=== PATIENT | female | born 1985 | race African-American/Black ===

== ENCOUNTER 2016-06-06 18:03 | Emergency (ER) | payer OTHER ==
[~2016-06-06] VITALS: Ht 170.2 cm; Wt 113.4 kg
--- NOTE | ~2016-06-06 | EKG ---
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
[~2016-06-06 18:03] MED LIST: FOLIC ACID; IRON; LOESTRIN 24 FE1 EACH; NORCO 5-325 TA1 EACH PO; VALIUM5 MG PO; VITAMIN B-12100 MCG
[2016-06-06] MEDS ORDERED: SINGULAIR 10 MG10 M1 PO (18:41)
[2016-06-06 19:56] LABS: BASOPHILS 0.8 % (0.0-2.0); EOSINOPHILS 0.6 % (0.0-3.0); HEMOGLOBIN 11.6 gm/dL (12.0-15.0)
[2016-06-06 19:58] LABS: HEMATOCRIT 36.3 % (37.0-47.0); MCH 23.3 pg (26.0-34.0); MCHC 31.9 % (28.0-37.0); MCV 73.1 fL (80.0-100.0); PLATELET COUNT 458 thou/uL (150-400); POLYS 60.6 % (36.0-66.0); RBC 4.97 mil/uL (4.20-5.00); WBC 13.2 thou/uL (4.0-11.0)
[2016-06-06 20:00] LABS: MANUAL DIFF NO
[2016-06-06 20:14] LABS: ANION GAP 10 mmol/L (7-16); BUN 9 mg/dL (7-18); CALCIUM 8.9 mg/dL (8.5-10.1); CHLORIDE 106 mmol/L (98-107); CO2 24 mmol/L (21-32); CREATININE 0.8 mg/dL (0.6-1.3); GLUCOSE 91 mg/dL (70-99); POTASSIUM 4.4 mmol/L (3.5-5.1); SODIUM 140 mmol/L (136-145)
[2016-06-06 20:21] LABS: ALBUMIN 3.4 g/dL (3.4-5.0); ALKALINE PHOSPHATASE 60 U/L (46-116); SGOT 8 U/L (15-37); SGPT 12 U/L (30-65); TOTAL BILIRUBIN 0.4 mg/dL (<0.1-1.0); TOTAL PROTEIN 8.1 g/dL (6.4-8.2); TROPONIN-I < 0.04 ng/mL (<0.04-0.07)
[2016-06-06 22:01] VITALS: BP 122/87
== END 2016-06-06 22:01 | disposition home or self-care (01) ==
LOC: ER 18:03
PROVIDERS: Physician Assistant
DX: R51 Headache (principal); R07.9 Chest pain, unspecified; J45.909 Unspecified asthma, uncomplicated; Z88.8 Allergy status to other drugs, medicaments and biological substances

== ENCOUNTER 2016-06-18 22:29 | Emergency (ER) | payer OTHER ==
[~2016-06-18] VITALS: Ht 170.2 cm; Wt 117.9 kg
[~2016-06-18 22:29] MED LIST changes: +SINGULAIR 10 MG10 M1 PO
[2016-06-18] MEDS ORDERED: TIZANIDINE HCL4 MG PO (23:56)
[2016-06-19 00:04] VITALS: BP 121/85
== END 2016-06-19 00:05 | disposition home or self-care (01) ==
LOC: ER 22:29
DX: S16.1XXA Strain of muscle, fascia and tendon at neck level, initial encounter (principal); S80.12XA Contusion of left lower leg, initial encounter; J45.909 Unspecified asthma, uncomplicated; Z88.6 Allergy status to analgesic agent; V43.52XA Car driver injured in collision with other type car in traffic accident, initial encounter; Y93.I9 Activity, other involving external motion; Y92.410 Unspecified street and highway as the place of occurrence of the external cause; Y99.9 Unspecified external cause status